=== PATIENT | female | born 1955 | race Caucasian/White ===

== ENCOUNTER 2018-11-20 20:06 | Emergency (ER) | payer BC ==
[~2018-11-20] VITALS: Ht 165.1 cm; Wt 86.4 kg
[2018-11-20 20:16] VITALS: Ht 165.1 cm; Wt 86.4 kg
[2018-11-20] MEDS ORDERED: CYMBALTA60 MG PO (20:17)
[2018-11-20] MEDS ORDERED: LIPITOR20 MG PO (20:18)
[2018-11-20] MEDS ORDERED: LYRICA50 MG PO (20:18)
[2018-11-20] MEDS ORDERED: TENORMIN25 MG PO (20:18)
[2018-11-20] MEDS ORDERED: AMBIEN10 MG PO (20:18)
[2018-11-20 20:39] LABS: BASOPHILS 0.2 % (0-2); HEMATOCRIT 39.6 % (36.0-48.0); HEMOGLOBIN 13.7 g/dL (12-16); IMMATURE GRANULOCYTES 0.2 % (0-5); LYMPHOCYTES 46.4 % (15-50); MCH 31.9 pg (26.0-34.0); MCHC 34.6 g/dL (31.0-37.0); MCV 92.1 fL (80.0-100.0); MEAN PLATELET VOLUME 9.2 fL (7.4-10.4); MONOCYTES 8.7 % (2-11); NEUTROPHILS 43.5 % (40-80); PLATELET COUNT 188 10x3/uL (130-400); RDW 13.1 % (11.5-14.5); WBC 5.9 10x3/uL (4.8-10.8)
[2018-11-20 21:23] LABS: ALBUMIN 3.8 g/dL (3.4-5.0); ALKALINE PHOSPHATASE 93 U/L (46-116); ALT (SGPT) 34 U/L (10-68); BILIRUBIN - TOTAL 0.28 mg/dL (0.2-1.3); C-REACTIVE PROTEIN 0.2 mg/dL (0.0-0.9); CALC OSMOLALITY 276 mosm/kg (275-300); CALCIUM 8.7 mg/dL (8.5-10.1); CARBON DIOXIDE 26.9 mmol/L (21.0-32.0); CHLORIDE - SERUM 103 mmol/L (98-107); CREATININE - SERUM 0.8 mg/dL (0.6-1.3); GLUCOSE 99 mg/dL (74-106); LIPASE 127 U/L (73-393); POTASSIUM - SERUM 3.8 mmol/L (3.5-5.1); PRO BNP 98 pg/mL (0-125); PROTEIN - SERUM 7.5 g/dL (6.4-8.2); SODIUM 139 mmol/L (136-145); UREA NITROGEN 9 mg/dL (7-18); eGFR NON AFRICAN AMERICAN 76 mL/min (90-120)
[2018-11-20 21:24] LABS: TROPONIN-I < 0.017 ng/mL (0.000-0.060)
[2018-11-21] VITALS: BP 111/63
== END 2018-11-21 | disposition home or self-care (01) ==
LOC: D.ER 20:06
PROVIDERS: Family Medicine
DX: R07.9 Chest pain, unspecified (principal); R10.9 Unspecified abdominal pain

== ENCOUNTER → 2019-06-10 19:03 | Outpatient (CLI) | payer MEDICARE, BC ==
[2018-11-20 20:16] VITALS: BMI 31.6
[~2019-06-10 19:03] MED LIST: AMBIEN10 MG PO; BAYER CHEWABLE81 MG PO; CYMBALTA60 MG PO; FUROSEMIDE20 MG PO; KEFLEX500 MG PO; LIPITOR20 MG PO; LYRICA50 MG PO; PERCOCET 5-3251 TAB PO; TENORMIN25 MG PO
[2019-06-11 01:42] VITALS: BMI 31.6
== END | disposition home or self-care (01) ==
LOC: D.RAD 19:03 → D.LABREF 19:03
PROVIDERS: ATTEND Family Medicine
DX: S82.032A Displaced transverse fracture of left patella, initial encounter for closed fracture (principal)

== ENCOUNTER 2019-06-10 20:08 | Observation (INO) | payer MEDICARE, BC ==
[~2019-06-10] VITALS: Ht 165.1 cm; Wt 86.4 kg
[~2019-06-10 20:08] MED LIST changes: -BAYER CHEWABLE81 MG PO; -FUROSEMIDE20 MG PO; -KEFLEX500 MG PO; -PERCOCET 5-3251 TAB PO
[2019-06-10 20:39] LABS: BASOPHILS 0.5 % (0-2); EOSINOPHILS 0.9 % (0-7); HEMATOCRIT 42.8 % (36.0-48.0); HEMOGLOBIN 13.8 g/dL (12-16); IMMATURE GRANULOCYTES 0.1 % (0-5); LYMPHOCYTES 41.5 % (15-50); MCH 31.6 pg (26.0-34.0); MCHC 32.2 g/dL (31.0-37.0); MCV 97.9 fL (80.0-100.0); MEAN PLATELET VOLUME 9.2 fL (7.4-10.4); MONOCYTES 9.9 % (2-11); NEUTROPHILS 47.1 % (40-80); RBC 4.37 10x6/uL (4.00-5.40); RDW 13.9 % (11.5-14.5); WBC 8.7 10x3/uL (4.8-10.8)
[2019-06-10 20:48] LABS: APTT 30.6 SECONDS (22.8-39.4); INR 1.04 (0.85-1.17); PROTIME 13.5 SECONDS (11.6-15.0)
[2019-06-10 20:56] LABS: ANION GAP 15.2 mmol/L (8-16); CALCIUM 8.8 mg/dL (8.5-10.1); CARBON DIOXIDE 25.7 mmol/L (21.0-32.0); CREATININE - SERUM 0.9 mg/dL (0.6-1.3); POTASSIUM - SERUM 3.9 mmol/L (3.5-5.1)
[2019-06-10 21:00] VITALS: BP 163/93
[2019-06-10 21:02] LABS: ALBUMIN 3.6 g/dL (3.4-5.0); BILIRUBIN - TOTAL 0.36 mg/dL (0.2-1.3); PROTEIN - SERUM 7.8 g/dL (6.4-8.2)
[2019-06-10 21:04] LABS: PLATELET COUNT 248 10x3/uL (130-400)
--- NOTE | 2019-06-10 22:01 | NUR ---
PT REPORT CALLED TO GITA ARMENDARIZ
[2019-06-10 22:28] VITALS: BP 140/72
--- NOTE | 2019-06-10 22:35 | NUR ---
PT ARRIVED ON UNIT VIA STRETCHER ESCORTED BY ER NURSE. POSITIONED FOR COMFORT. ORIENTED TO ROOM AND CALL LIGHT. IV TO LEFT AC SALINE LOCKED. LEFT KNEE IMMOBILIZER IN PLACE.
[2019-06-10] MEDS ORDERED: FUROSEMIDE20 MG PO (22:44)
--- NOTE | 2019-06-10 23:15 | NUR ---
PLACED ICE PACK ON LEFT KNEE FOR C/O PAIN. WILL CONTINUE TO MONITOR FOR NEEDS.
--- NOTE | 2019-06-11 00:55 | NUR ---
STARTED IV FLUIDS: 1/2 NS @ 50 ML/HR PER NEW ORDER.
--- NOTE | 2019-06-11 00:56 | NUR ---
GAVE MORPHINE AND ZOFRAN IVP FOR C/O PAIN. WILL MONITOR FOR EFFECTIVENESS.
[2019-06-11 01:42] VITALS: BP 134/69; Ht 165.1 cm; Wt 86.4 kg
[2019-06-11 04:00] VITALS: BP 106/66
--- NOTE | 2019-06-11 07:34 | NUR ---
PT ALERT X 4. BREATH SOUNDS CLEAR BILAT. IV TO LEFT AC, PATENT, DRESSING CDI. KNEE IMMOBILIZER TO LEFT LEG. PT REPORTING PAIN OF 5/10, WILL CONTINUE TO MONITOR. PT SCHEDULED FOR SURGERY TODAY. BED LOW, CALL LIGHT IN REACH. NO OTHER NEEDS AT THIS TIME.
[2019-06-11 08:55] VITALS: BP 145/78
[2019-06-11] MEDS ORDERED: KEFLEX500 MG PO (12:04)
[2019-06-11] MEDS ORDERED: PERCOCET 5-3251 TAB PO (12:04)
[2019-06-11] MEDS ORDERED: BAYER CHEWABLE81 MG PO (12:04)
[2019-06-11 12:46] VITALS: BP 123/58
--- NOTE | 2019-06-12 08:33 | OP ---
PATIENT NAME: FLOYD COYNE MEDICAL RECORD: [id number] :53 LOCATION:D.MS [id number] ADMISSION DATE:06/10/19 SURGEON: GUY BIRMINGHAM DO DATE OF OPERATION: 06/11/2019 PROCEDURE PERFORMED: Left patella open reduction internal fixation. PREOPERATIVE DIAGNOSIS: Left displaced transverse patellar fracture. POSTOPERATIVE DIAGNOSIS: Left displaced transverse patellar fracture. INDICATIONS: Ms. Coyne is a 64-year-old female who fell 2 days ago and could not bear weight on her left leg. She was brought to the ER and seen to have a displaced transverse patellar fracture. They called me and asked me to treat her and she was admitted overnight and made n.p.o. I talked her this morning, she wanted to have it fixed. I informed her of the risks including infection, bleeding, nonunion, malunion, continued knee pain, pain with hardware and loss of range of motion of the knee. She is okay with all that as well as blood clots and even and she signed the consent. SURGEON: Guy Birmingham DO DESCRIPTION OF PROCEDURE: The patient received a block by anesthesia in the preoperative area, taken to the operative suite, laid in supine position and 2 grams of Ancef preoperatively. She was then sedated and LMA was placed. The left lower extremity was then prepped and draped in sterile fashion. A timeout was performed; everyone was in agreement with the correct side, site, patient and procedure. We then exsanguinated the left lower extremity with an Esmarch. Tourniquet was inflated to 350 mmHg, it was up for 23 minutes. We then made an incision over the anterior knee. Careful dissection was made down to the patella. The fracture site was cleaned out and clamped together with a clamp making nice reduction and 2 K-wires were shot from distal to proximal and patella confirmed to be in good position on AP and lateral x-ray. I then just went through the distal cortex with a drill and had good capture with the lateral screw, but the medial screw did not. I then repositioned the pin and repeated that process and had good capture of the fully threaded both 38 mm of 4-0 cannulated screw. These reduced the patella nicely and held it very solidly, confirmed on AP and lateral x-ray, and having nice reduction of the fracture site. I then took an 18-gauge needle and aspirated the knee joint, aspirating 20 mL of sanguinous fluid out of the knee. She was then closed by Asad Washington, certified fish hatchery assistant using a #1 first of the capsule over the patella and then 2-0 Vicryl in an inverted interrupted fashion on the skin and a ZipLine placed on the skin. She was dressed with Adaptic, 4 x 4s, ABD, Webril, Brandt wrap and a LUZ hose stocking. She was placed in a knee immobilizer, awakened and taken to recovery in stable condition. BLOOD LOSS: 30 mL. COMPLICATIONS: None. TRANSINT:[id number] Voice Confirmation ID: [id number] DOCUMENT ID: [id number] OPERATIVE REPORT [id number] FLOYD COYNE,GUY Seth DO at 0833 CC: [id number] DICTATION DATE: 06/11/19 1212 GEOTHERMAL SHEET METAL WORKER: 06/11/19 1633 DIS IN 06/11/19 [facility] [address] [place] [address]
== END 2019-06-11 16:03 | disposition home or self-care (01) ==
LOC: D.ER 20:08 → OBSVTIME 21:01 → D.MS 21:01
PROVIDERS: Family Medicine; ADMIT Orthopaedic Surgery; ATTEND Orthopaedic Surgery
DX: S82.032A Displaced transverse fracture of left patella, initial encounter for closed fracture (principal); W19.XXXA Unspecified fall, initial encounter; I10 Essential (primary) hypertension

== ENCOUNTER → 2020-06-18 17:22 | Outpatient (CLI) | payer MEDICARE, BC ==
[2020-02-19 12:27] VITALS: BMI 36.3
[~2020-06-18 17:22] MED LIST changes: +ALDACTONE25 MG PO; +BAYER CHEWABLE81 MG PO; +FUROSEMIDE20 MG PO; +KEFLEX500 MG PO; +PERCOCET 5-3251 TAB PO
== END | disposition home or self-care (01) ==
LOC: D.LABREF 17:22
PROVIDERS: ATTEND Orthopaedic Surgery
DX: M17.11 Unilateral primary osteoarthritis, right knee (principal)

== ENCOUNTER 2020-07-22 08:00 | Outpatient (CLI) | payer MEDICARE, BC ==
[~2020-07-22 08:00] MED LIST changes: +HYDROCODONE-AC1 EAC2 PO
[2020-07-29 12:42] VITALS: BMI 36.3
== END 2020-07-22 08:01 | disposition home or self-care (01) ==
LOC: D.OPS 08:00
PROVIDERS: ATTEND Orthopaedic Surgery
DX: M17.11 Unilateral primary osteoarthritis, right knee (principal)

== ENCOUNTER 2020-07-29 06:20 | Observation (INO) | payer MEDICARE, BC ==
[2020-07-22 12:15] LABS: BILIRUBIN NEGATIVE (NEGATIVE); KETONE NEGATIVE (NEGATIVE); NITRITE NEGATIVE (NEGATIVE); UROBILINOGEN NORMAL mg/dL (< 2)
[2020-07-22 13:02] LABS: BASOPHILS 0.3 % (0-2); EOSINOPHILS 0.4 % (0-7); HEMATOCRIT 38.9 % (36.0-48.0); HEMOGLOBIN 12.9 g/dL (12-16); IMMATURE GRANULOCYTES 0.3 % (0-5); LYMPHOCYTES 38.3 % (15-50); MCH 32.5 pg (26.0-34.0); MCHC 33.2 g/dL (31.0-37.0); MEAN PLATELET VOLUME 9.7 fL (7.4-10.4); MONOCYTES 7.2 % (2-11); NEUTROPHIL ABS# 3.62 10x3/uL (1.56-6.13); NEUTROPHILS 53.5 % (40-80); PLATELET COUNT 234 10x3/uL (130-400); RBC 3.97 10x6/uL (4.00-5.40); RDW 13.2 % (11.5-14.5); WBC 6.8 10x3/uL (4.8-10.8)
[2020-07-22 13:12] LABS: ANION GAP 12.7 mmol/L (8-16); CALCIUM 8.9 mg/dL (8.5-10.1); CARBON DIOXIDE 25.3 mmol/L (21.0-32.0); CREATININE - SERUM 1.1 mg/dL (0.6-1.3); INR 1.13 (0.85-1.17); PROTIME 13.5 SECONDS (11.6-15.0)
[2020-07-29] VITALS (10 sets, daily range): BP systolic 100–163; BP diastolic 55–69; Ht 165.1 cm; Wt 99.1 kg
[~2020-07-29] VITALS: Ht 165.1 cm; Wt 99.1 kg
[2020-07-29] MEDS ORDERED: LASIX40 MG PO (07:13)
--- NOTE | 2020-07-29 11:12 | NUR ---
THROUGH TRAFFIC KEPT TO A MINIMUM. HIBACLENS AND ALCOHOL USED TO CLEAN ENTRIRE KNEE AND RIGHT LEG BEFORE PREPPING. STERILE GOWNED AND GLOVED TO PREP WITH CHLORAPREP TIMES TWO.
--- NOTE | 2020-07-29 14:24 | OP ---
PATIENT NAME: FLOYD COYNE MEDICAL RECORD: [id number] :53 LOCATION:D. D.1213 ADMISSION DATE:07/29/20 SURGEON: GUY BIRMINGHAM DO DATE OF OPERATION: 07/29/2020 PROCEDURE PERFORMED: Right total knee arthroplasty. PREOPERATIVE DIAGNOSIS: Right knee osteoarthritis. POSTOPERATIVE DIAGNOSIS: Right knee osteoarthritis. INDICATIONS: Ms. Coyne is a 65-year-old female who has had right knee pain for years. She has tried injections, all manner of nonoperative treatments no avail. She was aware of the risks of this including infection, bleeding, damage to nerve or vessels, need for further surgery, continued pain, blood clots, arthrofibrosis of the knee and even and she signed a consent. SURGEON: Guy Birmingham DO DESCRIPTION OF PROCEDURE: The patient was taken to the operative suite after given a block and spinal by anesthesia, laid in supine position, given light sedation through the IV and given 2 grams of Ancef, 80 mg of gentamicin and a gram of TXA. The right lower extremity was then prepped and draped in sterile fashion. A timeout was performed and everyone was in agreeance with the correct side, site, patient and procedure. I then began by marking on the anterior incision, covered in Ioban. Made careful dissection down to the capsule on the medial parapatellar approach with a fresh 10 blade, coagulating any bleeding with Aquamantys as I went through the capsule. I then everted the patella, removed part of the fat pad and milled the patella down to a 12 to 13 mm, then drilled for the 29 patella. I then flexed the knee up, removed the ACL, drilled in the femoral canal. I used the distal femoral guide to cut the distal femur, intramedullary guide, placed the distal femur cutting guide and then cut it through the guide. I then exposed the proximal tibia, cut the proximal tibia, removed that, cut and the menisci in extension coagulating any bleeding. I used a 10 extension block and it fit well. I then removed the pins. I flexed the knee up then, incised the femur to be 7. I used a 4-in-1 cutting block with an joon wing to ensure there was no notching. I then cut through the 4-in-1 cutting block, removed the cut bone. I then sized it to be an E, malleted on the femoral trial and put a 10 poly in between and went up to a 12, 12 fit pretty well. I then drilled the lug holes on the femur, reamed and punched the tibia. I then put extra holes in the tibia after removing the tibial trial tray and then irrigated thoroughly, then mixed the cement. Cement was then placed on the tibial implant in the tibia and impacted the tibial implant into place, removed the excess cement. I then impacted the femur on, put a 12-poly in between and prepped the knee in extension and put the cement after cleaning out the patella in the patellar holes that had been drilled and on the implant and squeezed it in place, removed excess cement. I then used 10% povidone-iodine and 500 mL of normal saline solution and let it sit in the knee for approximately 2 minutes while I injected the joint cocktail on the periosteum and at the quads. I then irrigated out with over a liter of normal saline and sized again, and went to a 13 poly, put that in and squeezed it into place, locked into place. I then tested flexion, mid flexion and extension, had good varus and valgus stress, good stability. I then irrigated one more time, put in Kareem and vancomycin and tobramycin powder in the knee joint and then closed the capsule with #1 Vicryl in [id number]-ka-gcsti fashion. Asad Washington, certified OPERATIVE REPORT [id number] [facility] surgical assistant professor of forestry at that point closed over the capsular closure with Stratafix #1 and then the skin with 2-0 Vicryl in inverted interrupted fashion. Used ZipLine on the skin with Adaptic, 4 x 4s, ABD, Webril, Brandt wrap. Placed LUZ hose stocking and she was taken to recovery in stable condition. Blood loss was approximately 300 mL. She was given another gram of TXA as well. TRANSINT:[id number] Voice Confirmation ID: [id number] DOCUMENT ID: [id number] GUY BIRMINGHAM DO at 1421 CC: [id number] DICTATION DATE: 07/29/20 1146 EXPERIMENTAL TECHNICIAN: 07/29/20 1333 [facility] [place] [id number] [place] [id number]
--- NOTE | 2020-07-29 19:23 | MORECARE ---
CASE MANAGEMENT DISCHARGE SUMMARY PATIENT: FLOYD VICKERS UNIT: [id number] ADM DATE: 07/29/20 AGE: 65 : 54 SEX: F [facility] AUTHOR: LATISHA,DOC PHYSICIAN: REFERRING PHYSICIAN: TL BIRMINGHAM DO DATE OF SERVICE: 07/29/20 Case Management Discharge Planning Summary DCP REVIEW SUMMARY ANTICIPATED D/C DATE: EXPECTED LOS : CASE STATUS: DCP Initiated INITIAL REVIEW: 07/29/2020 INITIAL REVIEWER: Deborah Palacios FINAL DISCHARGE DISPOSITION: : FINAL REVIEWER: FINAL REVIEW DATE: DCP Focus Questions & Answers QUESTION: ANSWER : PATIENT: FLOYD VICKERS ENCOUNTER: [id number] MEDICAL RECORD#: [id number] ADMISSION DATE: 07/29/2020 DISCHARGE DATE: ATTENDING MD: TL BRYSON : AGE: 65 MARITAL STATUS: M DC PLAN ID: [id number] FACILITY: [facility] PRINTED ON: 07/29/20 19:22 CT All edits/amendments must be made on the electronic document DICTATION DATE: 07/29/201921 C T TECH: TRINH 07/29/201921 RPT#: [id number] DC DATE: STATUS: ADM IN [facility] [address] [place] [address] END OF REPORT
--- NOTE | 2020-07-29 19:33 | MORECARE ---
CASE MANAGEMENT DISCHARGE SUMMARY PATIENT: FLOYD VICKERS UNIT: [id number] ADM DATE: 07/29/20 AGE: 65 : 54 SEX: F ROOM/BED: D.1213 AUTHOR: LATISHA,DOC PHYSICIAN: REFERRING PHYSICIAN: TL BIRMINGHAM DO DATE OF SERVICE: 07/29/20 Case Management Discharge Planning Summary COMMENTS ENTERED DATE: 07/29/20 19:18 CT COMMENT TYPE: Discharge Planning REVIEWER: Deborah Palacios PCP: Vasiliy in [place] Pharmacy: [facility] CM met with patient at bedside. Patient states that she lives at home with . Patient states that she has 0 steps going into her home but she does live in a two story home. Patient states that she has a walker, ice pack and CPM at home. Patient states that she wishes to do home health physical therapy when discharged. Patient wants to wait until she speaks with her friend before signing SHANNA for home health.Patient states that feels safe to discharge to her home with and she will have transportation home . CM will set up Home Health Services once patient signs [facility]. CM will continue to follow and assist as needed with discharge planning / needs DCP REVIEW SUMMARY ANTICIPATED D/C DATE: EXPECTED LOS : CASE STATUS: DCP Initiated INITIAL REVIEW: 07/29/2020 INITIAL REVIEWER: Deborah Palacios FINAL DISCHARGE DISPOSITION: : FINAL REVIEWER: FINAL REVIEW DATE: DCP Focus Questions & Answers QUESTION: ANSWER : PATIENT: FLOYD VICKERS ENCOUNTER: [id number] MEDICAL RECORD#: [id number] ADMISSION DATE: 07/29/2020 DISCHARGE DATE: ATTENDING MD: TL BRYSON : AGE: 65 MARITAL STATUS: M DC PLAN ID: [id number] FACILITY: [facility] PRINTED ON: 07/29/20 19:33 CT All edits/amendments must be made on the electronic document DICTATION DATE: 07/29/201932 SUPERVISOR DENTURE DEPARTMENT: TRINH 07/29/201932 RPT#: [id number] DC DATE: STATUS: ADM IN [facility] [address] [place] [address] END OF REPORT
--- NOTE | 2020-07-29 20:00 | NUR ---
ALERT RESTING IN BED CPM IN USE DENIES PAIN OR NEEDS AT THIS TIME, SEE SHIFT ASSESSMENT, CALL LIGHT IN REACH
[2020-07-30] VITALS: BP 102/53
[2020-07-30 04:06] VITALS: BP 94/50
[2020-07-30 05:00] VITALS: BP 114/64
[2020-07-30 07:19] VITALS: BP 105/56
[2020-07-30 07:31] LABS: ALBUMIN 2.9 g/dL (3.4-5.0); ANION GAP 16.1 mmol/L (8-16); BASOPHILS 0.3 % (0-2); BILIRUBIN - TOTAL 0.44 mg/dL (0.2-1.3); CALCIUM 7.4 mg/dL (8.5-10.1); CARBON DIOXIDE 21.4 mmol/L (21.0-32.0); CREATININE - SERUM 1.3 mg/dL (0.6-1.3); EOSINOPHILS 0.3 % (0-7); HEMATOCRIT 30.6 % (36.0-48.0); HEMOGLOBIN 10.1 g/dL (12-16); IMMATURE GRANULOCYTES 0.1 % (0-5); LYMPHOCYTE ABS# 2.67 10x3/uL (1.18-3.74); LYMPHOCYTES 28.8 % (15-50); MCH 32.6 pg (26.0-34.0); MCV 98.7 fL (80.0-100.0); MEAN PLATELET VOLUME 9.9 fL (7.4-10.4); MONOCYTES 12.4 % (2-11); NEUTROPHIL ABS# 5.39 10x3/uL (1.56-6.13); NEUTROPHILS 58.1 % (40-80); PLATELET COUNT 200 10x3/uL (130-400); POTASSIUM - SERUM 4.5 mmol/L (3.5-5.1); PROTEIN - SERUM 5.7 g/dL (6.4-8.2); RDW 13.5 % (11.5-14.5); WBC 9.3 10x3/uL (4.8-10.8)
--- NOTE | 2020-07-30 07:55 | NUR ---
PT BRITTANY IN ROOM. HAD TO GO BACK IN THERE BECAUSE PT IS TRYING TO GET UP AND GET DRESSED. TOLD HER THAT SHE WAS IN THE HOSPITAL AND THAT SHE HAD TO FINISH CPM THERAPY BEFORE SHE COULD GET UP AND GET DRESSED. CL IN REACH. EDE
[2020-07-30] MEDS ORDERED: PERCOCET 10-321 EAC1 PO (08:14)
[2020-07-30] MEDS ORDERED: ELIQUIS2.5 MG PO (08:14)
[2020-07-30 11:00] VITALS: BP 122/65
--- NOTE | 2020-07-30 12:36 | NUR ---
PT SITTING IN CHAIR RESTING. WENT TO EAT WITH DR COOK. CL IN REACH. CHAIR ALARM ON. WCTM
--- NOTE | 2020-07-30 14:20 | NUR ---
PT ATTEMPTED TO WALK IN [place] WITH KATIE CONDE, BRITTANY, AND I. GOT TIRED EASILY. WALKED APPROX. 20 FT BEFORE SHE WAS PALE AND DIAPHORETIC. BP, HR, RESP, O2 SAT STABLE 114/56 77 HR 92%. PT CAME TO WALK WITH PT. STATED 75 FT ON COMPLETION. I WALKED BEHIND HER WITH THE RECLINING CHAIR FROM HER ROOM IN CASE. SAME OCCURANCE WITH A DROP IN ALERTNESS. VS STILL STABLE. 126/50 82 HR 94%
--- NOTE | 2020-07-30 15:03 | NUR ---
PT IN TEARS SITTING IN THE CHAIR. "I WANT TO GO HOME." COULD BE A SIDE EFFECT OF THE [place] I GAVE TO EASE PAIN. IN ROOM. CL IN REACH. WCTM
--- NOTE | 2020-07-30 15:26 | NUR ---
PT UPSET AND REFUSING VITALS. IN ROOM. CL IN REACH. WCTM
--- NOTE | 2020-07-30 18:15 | NUR ---
PT MORE AWAKE AND "WITH IT" AFTER PERCOCET 5 MG. PT IN BED ON CPM. NO FURTHER NEEDS AT THIS TIME. WCTM
[2020-07-30 20:00] VITALS: BP 112/61
--- NOTE | 2020-07-30 20:00 | NUR ---
ALERT RESTING IN BED CPM IN USE DENIES PAIN OR NEEDS AT THIS TIME, SEE SHIFT ASSESSMENT CALL LIGHT IN REACH
[2020-07-31 04:15] VITALS: BP 144/75
[2020-07-31 06:15] LABS: BASOPHILS 0.3 % (0-2); EOSINOPHILS 0.2 % (0-7); HEMATOCRIT 28.9 % (36.0-48.0); LYMPHOCYTES 17.9 % (15-50); MCH 33.4 pg (26.0-34.0); MCHC 34.5 g/dL (31.0-37.0); MCV 96.9 fL (80.0-100.0); MEAN PLATELET VOLUME 7.9 fL (7.4-10.4); NEUTROPHILS 70.6 % (40-80); PLATELET COUNT 187 10x3/uL (130-400); RBC 2.99 10x6/uL (4.00-5.40); RDW 14.3 % (11.5-14.5); WBC 9.7 10x3/uL (4.8-10.8)
[2020-07-31 06:40] LABS: ALBUMIN 2.8 g/dL (3.4-5.0); ANION GAP 13.3 mmol/L (8-16); BILIRUBIN - TOTAL 0.77 mg/dL (0.2-1.3); CALCIUM 8.2 mg/dL (8.5-10.1); CARBON DIOXIDE 25.8 mmol/L (21.0-32.0); CREATININE - SERUM 1.4 mg/dL (0.6-1.3); POTASSIUM - SERUM 4.1 mmol/L (3.5-5.1); PROTEIN - SERUM 5.8 g/dL (6.4-8.2)
[2020-07-31 07:22] VITALS: BP 135/68
--- NOTE | 2020-07-31 07:37 | NUR ---
PT BED ALARM GOING OFF. ASSISTED TO BATHROOM. PT HAD A SMALL ACCIDENT. WHITE NIRANJAN AND TOP SHEETS REFRESHED. NEW UNDERWEAR GOTTEN FROM OUR SUPPLIES. NO NEEDS AT THIS TIME. SHIFT ASSESSMENT COMPLETED SEE FLOWSHEET. VS TAKEN AND STABLE SEE FLOWSHEET. CL IN REACH. BED ALARM ON. WCTM
--- NOTE | 2020-07-31 08:45 | NUR ---
PT ASSISTED TO BATHROOM AND BACK TO BED TO SIT ON THE SIDE OF THE BED. PT REFUSES TO EAT. STATES SHE FEELS MUCH BETTER. DRESSING CHANGED. CL IN REACH. IN ROOM. WCTM
[2020-07-31 11:11] VITALS: BP 130/63
--- NOTE | 2020-07-31 12:41 | MORECARE ---
CASE MANAGEMENT DISCHARGE SUMMARY PATIENT: FLOYD VICKERS UNIT: [id number] ADM DATE: 07/29/20 AGE: 65 : 54 SEX: F ROOM/BED: D.1213 AUTHOR: LATISHA,DOC PHYSICIAN: REFERRING PHYSICIAN: TL BIRMINGHAM DO DATE OF SERVICE: 07/31/20 Case Management Discharge Planning Summary COMMENTS ENTERED DATE: 07/31/20 12:26 CT COMMENT TYPE: Discharge Planning REVIEWER: Isabell Voss SPOKE WITH PATIENT, SHE HAS MEDICAL EQUIPMENT AND WOULD LIKE [facility] FOR PHYSICAL THERAPY. [facility] WILL PLAN TO START CARE MONDAY. ANTICIPATE PATIENT TO DC TO HOME TODAY. FAMILY AT BEDSIDE. SHANNA SIGNED FOR [facility]. CM TO FOLLOW AND ASSIST NEEDED. ENTERED DATE: 07/29/20 19:18 CT COMMENT TYPE: Discharge Planning REVIEWER: Deborah Palacios PCP: Vasiliy in [place] Pharmacy: [facility] CM met with patient at bedside. Patient states that she lives at home with . Patient states that she has 0 steps going into her home but she does live in a two story home. Patient states that she has a walker, ice pack and CPM at home. Patient states that she wishes to do home health physical therapy when discharged. Patient wants to wait until she speaks with her friend before signing [facility] for home health.Patient states that feels safe to discharge to her home with and she will have transportation home . CM will set up Home Health Services once patient signs [facility]. CM will continue to follow and assist as needed with discharge planning / needs DCP REVIEW SUMMARY ANTICIPATED D/C DATE: EXPECTED LOS : CASE STATUS: DCP Initiated INITIAL REVIEW: 07/29/2020 INITIAL REVIEWER: Deborah Palacios FINAL DISCHARGE DISPOSITION: : FINAL REVIEWER: FINAL REVIEW DATE: DCP Focus Questions & Answers QUESTION: ANSWER : PATIENT: FLOYD VICKERS ENCOUNTER: [id number] MEDICAL RECORD#: [id number] ADMISSION DATE: 07/29/2020 DISCHARGE DATE: ATTENDING MD: TL BRYSON : AGE: 65 MARITAL STATUS: M DC PLAN ID: [id number] FACILITY: [facility] PRINTED ON: 07/31/20 12:40 CT All edits/amendments must be made on the electronic document DICTATION DATE: 07/31/201239 PRODUCTION TEAM LEADER: TRINH 07/31/201239 RPT#: [id number] DC DATE: STATUS: ADM IN [facility] [address] [place] [address] END OF REPORT
--- NOTE | 2020-07-31 12:41 | NUR ---
IV THERAPY REMOVED FROM LEFT HAND WITH TIP INTACT. DISCHARGE INSTRUCTIONS GIVEN. PT AND BRITTANY VERBALIZED UNDERSTANDING. CALLED TRANSPORT TO WHEEL OUT.
--- NOTE | 2020-07-31 13:22 | MORECARE ---
CASE MANAGEMENT DISCHARGE SUMMARY PATIENT: FLOYD VICKERS UNIT: [id number] ADM DATE: 07/29/20 AGE: 65 : 54 SEX: F ROOM/BED: D.1213 AUTHOR: LATISHA,DOC PHYSICIAN: REFERRING PHYSICIAN: TL BIRMINGHAM DO DATE OF SERVICE: 07/31/20 Case Management Discharge Planning Summary COMMENTS ENTERED DATE: 07/31/20 12:26 CT COMMENT TYPE: Discharge Planning REVIEWER: Isabell Voss SPOKE WITH PATIENT, SHE HAS MEDICAL EQUIPMENT AND WOULD LIKE [facility] FOR PHYSICAL THERAPY. [facility] WILL PLAN TO START CARE MONDAY. ANTICIPATE PATIENT TO DC TO HOME TODAY. FAMILY AT BEDSIDE. SHANNA SIGNED FOR [facility]. CM TO FOLLOW AND ASSIST NEEDED. ENTERED DATE: 07/29/20 19:18 CT COMMENT TYPE: Discharge Planning REVIEWER: Deborah Palacios PCP: Vasiliy in [place] Pharmacy: [facility] CM met with patient at bedside. Patient states that she lives at home with . Patient states that she has 0 steps going into her home but she does live in a two story home. Patient states that she has a walker, ice pack and CPM at home. Patient states that she wishes to do home health physical therapy when discharged. Patient wants to wait until she speaks with her friend before signing [facility] for home health.Patient states that feels safe to discharge to her home with and she will have transportation home . CM will set up Home Health Services once patient signs [facility]. CM will continue to follow and assist as needed with discharge planning / needs DCP REVIEW SUMMARY ANTICIPATED D/C DATE: EXPECTED LOS : CASE STATUS: DCP Initiated INITIAL REVIEW: 07/29/2020 INITIAL REVIEWER: Deborah Palacios FINAL DISCHARGE DISPOSITION: : FINAL REVIEWER: FINAL REVIEW DATE: DCP Focus Questions & Answers QUESTION: ANSWER : PATIENT: FLOYD VICKERS ENCOUNTER: [id number] MEDICAL RECORD#: [id number] ADMISSION DATE: 07/29/2020 DISCHARGE DATE: 07/31/2020 ATTENDING MD: TL BRYSON : AGE: 65 MARITAL STATUS: M DC PLAN ID: [id number] FACILITY: [facility] PRINTED ON: 07/31/20 13:22 CT All edits/amendments must be made on the electronic document DICTATION DATE: 07/31/201321 PARLIAMENTARY LIBRARIAN: TRINH 07/31/20 132 RPT#: [id number] DC DATE:07/31/20 STATUS: DIS IN [facility] [address] [place] [address] END OF REPORT
== END 2020-07-31 13:12 | disposition home or self-care (01) ==
LOC: D.OPS 06:20 → EDSTATUS 07:00 → D.OPS 07:00 → D.M3 07:10 → OBSVTIME 07:10 → D.OPS 08:30 → D.M3 07-31 13:12
PROVIDERS: Family Medicine Adult Medicine; ADMIT Orthopaedic Surgery; ATTEND Orthopaedic Surgery
DX: M17.11 Unilateral primary osteoarthritis, right knee (principal); I10 Essential (primary) hypertension; K21.9 Gastro-esophageal reflux disease without esophagitis; G62.9 Polyneuropathy, unspecified